=== PATIENT | female | born 1970 | race Caucasian/White ===

== ENCOUNTER → 2016-05-12 | Outpatient (CLI) | payer OTHER ==
[~2016-05-12] MED LIST: KENALOG0.5% TP; VISTARIL50 MG PO
== END | disposition home or self-care (01) ==
LOC: US 09:17
DX: M79.604 Pain in right leg (principal)

== ENCOUNTER → 2017-06-02 | Outpatient (CLI) | payer BC | END | disposition home or self-care (01) | LOC: MAMMO 12:39 | DX: Z12.31 Encounter for screening mammogram for malignant neoplasm of breast (principal); Z13.820 Encounter for screening for osteoporosis; N95.9 Unspecified menopausal and perimenopausal disorder; E11.9 Type 2 diabetes mellitus without complications ==

== ENCOUNTER → 2018-02-11 | Day surgery (SDC) | payer BC ==
[~2018-02-11] VITALS: Ht 165.1 cm; Wt 95.3 kg
[~2018-02-11] MED LIST changes: +DILTIAZEM HYDR180 M2 PO; +FISH OIL 1,0001 EAC4 PO; +GLUCOTROL10 MG PO; +PROTONIX40 MG PO; +VITAMIN D50000 UNIT PO; +ZOCOR10 MG PO
--- NOTE | ~2018-02-11 | O ---
[place], [place] OPERATIVE NOTE NAME: HANH MAXWELL UNIT #: [id number] ROOM: DOCTOR: PAUL RAO MD BIRTHDATE: [birth year] DOS: 02/11/2018 GASTROENDOSCOPIC REPORT INDICATIONS: The patient has presented with chief complaint of abdominal pain, epigastric pain, and change in bowel habit. PROCEDURE: Colonoscopy. PREMEDICATION: Propofol. SCOPE: Olympus folding colonoscope 10L video. REPORT: After putting the patient in left lateral position and application of lubricant to the scope, the scope was introduced. Thereafter, under direct visualization, it was advanced through the length of colon without difficulty. Base of the cecum was explored, appendiceal orifice identified, ileocecal valve was defined. No acute pathology. A very few early diverticular pouches were seen that were very superficial. The patient was extubated, tolerated the procedure well. IMPRESSION: Normal colonoscopic examination except a few very superficial diverticula. PLAN AND DISCUSSION: Irritable bowel syndrome is concerned. I will start her on dicyclomine 1 daily and we will reassess the patient as outpatient routinely with you in office and p.r.n. visit with us in [facility]. PAUL RAO MD CM:OPRECORD:OPERATIVE NOTE 1252 [id number] PAUL RAO MD 02/11/18 1357 interface
--- NOTE | ~2018-02-11 | O ---
[place], [place] OPERATIVE NOTE NAME: HANH MAXWELL UNIT #: [id number] ROOM: DOCTOR: PAUL RAO MD BIRTHDATE: [birth year] DOS: 02/11/2018 GASTROENDOSCOPIC REPORT INDICATIONS: The patient has presented with chief complaint of epigastric distress, dyspepsia, history of nonspecific abdominal pain, constipation, diarrhea, alteration in bowel. ALLERGIES: METFORMIN. FAMILY HISTORY: Brother with liver carcinoma. PAST SURGICAL HISTORY: Gallbladder, appendectomy, and tubal ligation. PAST MEDICAL HISTORY: Hypertension, hyperlipidemia, and diabetes. SOCIAL HISTORY: Nonsmoker, nonalcohol consumer. PROCEDURE: Today's procedure part of investigation is panendoscopy plus colonoscopy. PREMEDICATION: Propofol. SCOPE: Olympus forward-viewing gastroscope Q10 video. REPORT: After putting the patient in left lateral position and application of lubricant to the scope, the scope was introduced. Thereafter, under direct visualization, it was advanced through the length of esophagus without difficulty. Esophagus, cervical, and thoracic were carefully examined. Gastric pouch was entered. Gastritis was seen at the length of esophagus without difficulty. Gastric pouch was entered. Evidence of gastritis was seen. Antral biopsy was obtained. Duodenal bulb, second and third parts were within normal limit. The patient was extubated, tolerated the procedure well. IMPRESSION: Mild gastritis, status post biopsy, awaiting H. pylori results. PLAN AND DISCUSSION: We are going to continue with the present medication as he is on, Protonix 40 mg daily. On the other hand, I am going to proceed with colonoscopic evaluation. [place], [place] OPERATIVE NOTE NAME: HANH MAXWELL UNIT #: [id number] ROOM: DOCTOR: PAUL RAO MD BIRTHDATE: [birth year] PAUL RAO MD CM:OPRECORD:OPERATIVE NOTE 1252 1355 PAUL RAO MD 02/11/18 1353 interface
[2018-02-11 11:17] VITALS: BP 143/94
[2018-02-11 12:45] VITALS: BP 121/86
[2018-02-11 13:00] VITALS: BP 122/88
[2018-02-11 13:16] VITALS: BP 139/87
== END | disposition home or self-care (01) ==
LOC: SDC 02-07 08:45
DX: K57.30 Diverticulosis of large intestine without perforation or abscess without bleeding (principal); K29.50 Unspecified chronic gastritis without bleeding; K21.9 Gastro-esophageal reflux disease without esophagitis; I10 Essential (primary) hypertension; E11.9 Type 2 diabetes mellitus without complications; E78.5 Hyperlipidemia, unspecified; J45.909 Unspecified asthma, uncomplicated; E66.9 Obesity, unspecified; Z68.34 Body mass index [BMI] 34.0-34.9, adult; Z98.51 Tubal ligation status; Z79.899 Other long term (current) drug therapy; Z90.49 Acquired absence of other specified parts of digestive tract; Z88.8 Allergy status to other drugs, medicaments and biological substances; Z83.3 Family history of diabetes mellitus; Z82.49 Family history of ischemic heart disease and other diseases of the circulatory system

== ENCOUNTER → 2018-03-29 | Outpatient (CLI) | payer BC | END | disposition home or self-care (01) | LOC: RAD 11:00 | DX: R05 Cough (principal); R06.02 Shortness of breath; I10 Essential (primary) hypertension; E11.9 Type 2 diabetes mellitus without complications ==

== ENCOUNTER → 2019-04-07 | Outpatient (CLI) | payer BC | END | disposition home or self-care (01) | LOC: CT 04-05 08:00 | DX: R91.8 Other nonspecific abnormal finding of lung field (principal); M54.2 Cervicalgia ==

== ENCOUNTER → 2019-11-04 | Outpatient (CLI) | payer BC ==
[2019-11-04 10:07] LABS: BASO % 0.5 % (0.0-1.0); EOS # 0.2 10*3/uL (0.0-0.4); EOS % 1.7 % (1.0-4.0); HEMATOCRIT 43.1 % (37.0-47.0); LYMPH # 2.1 10*3/uL (1.3-4.4); LYMPH % 23.7 % (27.0-41.0); MEAN CORPUSCULAR HGB CONC 31.8 g/dl (33.0-37.0); MONO # 0.6 10*3/uL (0.1-1.0); MONO % 6.4 % (3.0-9.0); NEUT # 5.9 10*3/uL (2.3-7.9); NEUT % 67.2 % (47.0-73.0); PLATELET COUNT AUTOMATED 381 10*3/uL (130-400); RED BLOOD COUNT 5.07 10*6/uL (4.10-5.10); RED CELL DISTRI WIDTH 13.7 % (0-14.5); WHITE BLOOD COUNT 8.7 10*3/uL (4.8-10.8)
[2019-11-04 10:25] LABS: ALBUMIN 3.6 gm/dl (3.1-4.5); ALKALINE PHOSPHATASE 65 U/L (45-117); BUN 12 mg/dl (7-24); CHLORIDE 106 mmol/L (98-107); CHOLESTEROL 196 mg/dL (<200); CREATININE 0.77 mg/dL (0.55-1.02); HDL CHOLESTEROL 36 mg/dl (40-60); LDL CHOLESTEROL 128 mg/dL (9-159); POTASSIUM 3.7 mmol/L (3.5-5.1); SGOT/AST 15 IU/L (3-35); SGPT/ALT 29 U/L (12-78); SODIUM 136 mmol/L (136-145); TOTAL PROTEIN 7.4 gm/dL (6.4-8.2); TRIGLYCERIDES 162 mg/dl (<150); VLDL CHOLESTEROL 32 mg/dL (6-40)
[2019-11-04 10:51] LABS: VITAMIN D, 25-HYDROXY 47.8 ng/mL (30-100)
== END | disposition home or self-care (01) ==
LOC: LAB 09:25
PROVIDERS: ATTEND Internal Medicine
DX: Z00.01 Encounter for general adult medical examination with abnormal findings (principal); I10 Essential (primary) hypertension; E11.9 Type 2 diabetes mellitus without complications; E55.9 Vitamin D deficiency, unspecified

== ENCOUNTER → 2020-01-24 | Outpatient (CLI) | payer BC | END | disposition home or self-care (01) | LOC: RAD 08:42 → MAMMO 09:30 | PROVIDERS: ATTEND Internal Medicine | DX: Z12.31 Encounter for screening mammogram for malignant neoplasm of breast (principal); Z78.0 Asymptomatic menopausal state ==

== ENCOUNTER → 2020-04-10 | Outpatient (CLI) | payer BC ==
[~2020-04-10] MED LIST changes: +COMPLETE M9 MG/15 ML PO; +ZESTRIL10 MG PO
== END | disposition home or self-care (01) ==
LOC: COVID19 14:38
PROVIDERS: ATTEND Internal Medicine
DX: U07.1 COVID-19 (principal)

== ENCOUNTER → 2020-04-27 | Outpatient (CLI) | payer BC ==
[2020-04-27 10:21] LABS: BASO % 0.3 % (0.0-1.0); EOS # 0.1 10*3/uL (0.0-0.4); EOS % 1.1 % (1.0-4.0); HEMATOCRIT 42.8 % (37.0-47.0); LYMPH % 21.8 % (27.0-41.0); MEAN CELL VOLUME 84.8 fl (81.0-99.0); MEAN CORPUSCULAR HGB 27.5 pg (27.0-31.0); MEAN CORPUSCULAR HGB CONC 32.5 g/dl (33.0-37.0); MONO # 0.7 10*3/uL (0.1-1.0); MONO % 7.8 % (3.0-9.0); NEUT # 6.1 10*3/uL (2.3-7.9); NEUT % 68.4 % (47.0-73.0); PLATELET COUNT AUTOMATED 411 10*3/uL (130-400); RED BLOOD COUNT 5.05 10*6/uL (4.10-5.10); RED CELL DISTRI WIDTH 13.7 % (0-14.5)
[2020-04-27 10:42] LABS: ALBUMIN 3.4 gm/dl (3.1-4.5); ALKALINE PHOSPHATASE 60 U/L (45-117); BUN 15 mg/dl (7-24); CHLORIDE 109 mmol/L (98-107); CHOLESTEROL 156 mg/dL (<200); CREATININE 0.73 mg/dL (0.55-1.02); FREE T4 1.12 ng/dl (0.76-1.46); HDL CHOLESTEROL 38 mg/dl (40-60); LDL CHOLESTEROL 76 mg/dL (9-159); POTASSIUM 4.1 mmol/L (3.5-5.1); SGOT/AST 32 IU/L (3-35); SGPT/ALT 68 U/L (12-78); SODIUM 140 mmol/L (136-145); TOTAL PROTEIN 7.1 gm/dL (6.4-8.2); TRIGLYCERIDES 212 mg/dl (<150); VLDL CHOLESTEROL 42 mg/dL (6-40)
[2020-04-27 11:11] LABS: VITAMIN D, 25-HYDROXY 33.8 ng/mL (30-100)
== END | disposition home or self-care (01) ==
LOC: LAB 09:29
PROVIDERS: ATTEND Internal Medicine
DX: R73.9 Hyperglycemia, unspecified (principal); M79.10 Myalgia, unspecified site; R10.32 Left lower quadrant pain; J20.9 Acute bronchitis, unspecified; J01.00 Acute maxillary sinusitis, unspecified

== ENCOUNTER → 2020-11-20 | Outpatient (CLI) | payer BC ==
[~2020-11-20] MED LIST changes: +AMARYL4 MG PO; +LANTUS SOL100 UNIT/1 SC
== END | disposition home or self-care (01) ==
LOC: CARD 00:57
PROVIDERS: ATTEND Internal Medicine
DX: R07.9 Chest pain, unspecified (principal)

== ENCOUNTER → 2021-06-17 | Outpatient (CLI) | payer BC ==
[2021-06-17 15:01] LABS: BASO % 0.4 % (0.0-1.0); EOS # 0.2 10*3/uL (0.0-0.4); HEMATOCRIT 42.8 % (37.0-47.0); LYMPH # 2.3 10*3/uL (1.3-4.4); LYMPH % 27.8 % (27.0-41.0); MEAN CELL VOLUME 84.9 fl (81.0-99.0); MEAN CORPUSCULAR HGB 28.4 pg (27.0-31.0); MEAN CORPUSCULAR HGB CONC 33.4 g/dl (33.0-37.0); MEAN PLATELET VOLUME 9.6 fl (9.6-12.3); MONO # 0.6 10*3/uL (0.1-1.0); MONO % 7.8 % (3.0-9.0); NEUT # 5.1 10*3/uL (2.3-7.9); NEUT % 61.8 % (47.0-73.0); PLATELET COUNT AUTOMATED 363 10*3/uL (130-400); RED BLOOD COUNT 5.04 10*6/uL (4.10-5.10); WHITE BLOOD COUNT 8.2 10*3/uL (4.8-10.8)
[2021-06-17 15:18] LABS: CHLORIDE 103 mmol/L (98-107); POTASSIUM 3.7 mmol/L (3.5-5.1); SODIUM 138 mmol/L (136-145)
[2021-06-17 15:34] LABS: ALKALINE PHOSPHATASE 59 U/L (45-117); BUN 15 mg/dl (7-24); CHOLESTEROL 177 mg/dL (<200); CREATININE 0.73 mg/dL (0.55-1.02); LDL CHOLESTEROL 104 mg/dL (9-159); SGOT/AST 17 IU/L (3-35); SGPT/ALT 33 U/L (12-78); T3 UPTAKE 31 % (31-39); TOTAL PROTEIN 7.5 gm/dL (6.4-8.2); TRIGLYCERIDES 140 mg/dl (<150)
[2021-06-17 16:15] LABS: VITAMIN D, 25-HYDROXY 28.1 ng/mL (30-100)
== END | disposition home or self-care (01) ==
LOC: LAB 14:44 → MAMMO 15:30
PROVIDERS: ATTEND Internal Medicine
DX: I10 Essential (primary) hypertension (principal); E55.9 Vitamin D deficiency, unspecified; Z13.0 Encounter for screening for diseases of the blood and blood-forming organs and certain disorders involving the immune mechanism; Z13.29 Encounter for screening for other suspected endocrine disorder; Z13.89 Encounter for screening for other disorder; M54.16 Radiculopathy, lumbar region; Z12.31 Encounter for screening mammogram for malignant neoplasm of breast

== ENCOUNTER → 2021-12-03 | Outpatient (CLI) | payer BC | END | disposition home or self-care (01) | LOC: US 13:35 | PROVIDERS: ATTEND Internal Medicine | DX: N64.59 Other signs and symptoms in breast (principal); N63.10 Unspecified lump in the right breast, unspecified quadrant ==

== ENCOUNTER → 2022-04-08 | Outpatient (CLI) | payer BC | END | disposition home or self-care (01) | LOC: MRI 12:44 | PROVIDERS: ATTEND Internal Medicine | DX: M51.36 Other intervertebral disc degeneration, lumbar region (principal); M48.061 Spinal stenosis, lumbar region without neurogenic claudication; M16.0 Bilateral primary osteoarthritis of hip ==

== ENCOUNTER → 2024-03-28 | Outpatient (CLI) | payer BC | END | disposition home or self-care (01) | LOC: US 12:12 | PROVIDERS: ATTEND Podiatrist | DX: R60.0 Localized edema (principal); M79.662 Pain in left lower leg ==

== ENCOUNTER → 2024-10-10 | Outpatient (CLI) | payer BC | LOC: US 07:42 | PROVIDERS: ATTEND Internal Medicine | DX: I65.23 Occlusion and stenosis of bilateral carotid arteries (principal); I10 Essential (primary) hypertension ==

== ENCOUNTER → 2024-11-13 | Outpatient (CLI) | payer BC | END | disposition home or self-care (01) | LOC: RAD 10:40 | PROVIDERS: ATTEND Internal Medicine | DX: M54.2 Cervicalgia (principal); R07.2 Precordial pain; R07.89 Other chest pain; M85.80 Other specified disorders of bone density and structure, unspecified site; M25.811 Other specified joint disorders, right shoulder ==